=== PATIENT | male | born 1975 | race Caucasian/White ===

== ENCOUNTER 2021-09-12 14:17 | Emergency (ER) | payer BC ==
[2021-09-12] MEDS ORDERED: MEDROL DOSEPAK 24 MG PO (14:46)
[2021-09-12] MEDS ORDERED: CORTIZONE-10 PL28 GM TP (14:46)
== END 2021-09-12 15:15 | disposition home or self-care (01) ==
LOC: ER1 14:17
DX: L23.7 Allergic contact dermatitis due to plants, except food (principal)
CPT/HCPCS: 96372; 99282; J1100